=== PATIENT | female | born 1970 | race Caucasian/White ===

== ENCOUNTER 2020-11-03 12:48 | Emergency (ER) | payer OTHER, SELFPAY ==
--- NOTE | 2020-11-03 12:51 | ED.EAR ---
HPI - Ear Problem General Chief complaint: Ear Stated complaint: EARACHE Time Seen by Provider: 11/03/20 12:51 Source: patient and RN notes reviewed History of Present Illness HPI Narrative: Patient is a 50-year-old female who presents the urgent care with complaints of right ear pain. Patient states that it started on Saturday after she had gone swimming on Saturday. Patient states she has had reconstructive surgery to the right eardrum. Patient has been using drops that are her daughter's old prescription as well as ibuprofen. Patient states that the drops did not improve the pain. Patient also reports of some swelling in her right lymph node. Denies of any fever, chills, nausea, vomiting. States that she does have some painful swallowing. No other acute complaints. No acute distress noted. Patient aware of the plan of care. Some parts of this dictation were generated by voice recognition software and may contain typographical and/or grammatical inaccuracies. Related Data Home Medications Medication Instructions Recorded Confirmed ferrous sulfate [FeroSul] 325 mg PO DAILY 11/03/20 11/03/20 fluoxetine 20 mg PO DAILY 11/03/20 11/03/20 hydrochlorothiazide 25 mg PO DAILY 11/03/20 11/03/20 loratadine 10 mg PO DAILY 11/03/20 11/03/20 metformin 500 mg PO BID 11/03/20 11/03/20 thyroid (pork) [[place] Thyroid] 90 mg PO DAILY 11/03/20 11/03/20 Allergies Allergy/AdvReac Type Severity Reaction Status Date / Time No Known Allergies Allergy Verified 11/03/20 12:56 Review of Systems Review of Systems: Narrative: CONSTITUTIONAL: Denies fever, chills, or sweats. EYES: Denies visual changes, redness, or discharge. ENT: Reports of right-sided swollen lymph node, painful swallowing, and right ear pain CARDIOVASCULAR: Denies chest pain, palpitations, or edema. RESPIRATORY: Denies cough or dyspnea. GASTROINTESTINAL: Denies abdominal pain, nausea, vomiting, or diarrhea. GENITOURINARY: Denies dysuria or hematuria. SKIN: Denies rash or itching. MUSCULOSKELETAL: Denies back pain, joint pain, or myalgia. NEUROLOGIC: Denies headache, numbness, or weakness. All other systems reviewed are negative, except as documented in HPI. PMFSH Comments At the time of my signature, I reviewed and agree with the nursing past medical, surgical, social, and family history. There is no relevant family history pertinent to the patient complaint. Exam Narrative: Exam Narrative: GENERAL: This is a well-nourished, well-developed patient, in no apparent distress. HEAD: normocephalic, atraumatic. EYES: PERRL. Sclera clear/white. Vision is grossly intact. EARS: External ears normal, auditory canals clear and without drainage, mild fluid and mild scarring noted to the right TM without otitis, left TM normal without perforation. Hearing grossly intact. NOSE: External nose normal with no obvious nasal discharge, nares without redness, no rhinorrhea. THROAT: Mucous membranes moist, posterior pharynx clear. Mild postnasal drainage NECK: Neck supple, mild tender right submandibular lymphadenopathy CARDIOVASCULAR: Regular rate and rhythm without murmurs, gallops, or rubs. RESPIRATORY: Clear to auscultation. Breath sounds equal bilaterally. No wheezes, rales, or rhonchi. GASTROINTESTINAL: Abdomen soft, non-tender, nondistended. Bowel sounds are active. No hepato-splenomegaly, or palpable masses. No guarding. SKIN: warm, intact with no suspicious lesions or rash, good texture and turgor. NEURO: awake, alert, and oriented to person, place and time. There were no obvious focal neurologic abnormalities. EXTREMITIES: No clubbing, cyanosis, or edema. Course Vital Signs Vital signs: Vital Signs Temperature 99.0 F 11/03/20 12:57 Pulse Rate 112 H 11/03/20 12:57 Respiratory Rate 16 11/03/20 12:57 Blood Pressure 129/80 11/03/20 12:57 Pulse Oximetry 99 11/03/20 12:57 Temperature 99.0 F 11/03/20 12:57 Pulse Rate 112 H 11/03/20 12:57 Respiratory Rate 16 04
[2020-11-03 12:57] VITALS: BP 129/80; PULSE 112; RESP 16; TEMP 37.2; O2SAT 99
== END 2020-11-03 13:18 | disposition home or self-care (01) ==
PROVIDERS: Emergency Provider Nurse Practitioner Family; PCP Internal Medicine
DX: H92.01 Otalgia, right ear (principal); E11.9 Type 2 diabetes mellitus without complications; E03.9 Hypothyroidism, unspecified; D64.9 Anemia, unspecified
CPT/HCPCS: 87081; 87880; 99213; G0463

== ENCOUNTER 2022-01-11 11:12 | Emergency (ER) | payer OTHER, SELFPAY ==
[2022-01-11 11:20] VITALS: BP 117/89; PULSE 101; RESP 20; TEMP 36.7; O2SAT 99
--- NOTE | 2022-01-11 11:35 | ED.FEMALEGU ---
HPI - Female Genitourinary General Chief complaint: Urogenital-Female Stated complaint: UTI Complaint Time Seen by Provider: 01/11/22 11:35 Source: patient Mode of arrival: ambulatory Limitations: no limitations History of Present Illness HPI Narrative: 51-year-old female presents with complaint of urgency, dysuria, low back pain for 4 days. Reports pain several times but decreased amount. Denies nausea vomiting diarrhea. Denies fever chills. Is concerned that she has a urinary tract affection. All systems reviewed and negative except as noted above. Related Data Home Medications Medication Instructions Recorded Confirmed ferrous sulfate 325 mg (65 mg 325 mg PO DAILY 11/03/20 11/03/20 iron) tablet (FeroSul) fluoxetine 20 mg capsule 20 mg PO DAILY 11/03/20 11/03/20 hydrochlorothiazide 25 mg tablet 25 mg PO DAILY 11/03/20 11/03/20 loratadine 10 mg tablet 10 mg PO DAILY 11/03/20 11/03/20 metformin 500 mg tablet 500 mg PO BID 11/03/20 11/03/20 thyroid (pork) 90 mg tablet 90 mg PO DAILY 11/03/20 11/03/20 ([place] Thyroid) Allergies Allergy/AdvReac Type Severity Reaction Status Date / Time No Known Allergies Allergy Verified 11/03/20 12:56 Review of Systems Review of Systems: CONSTITUTIONAL: Denies fever, chills, or sweats. EYES: Denies visual changes, redness, or discharge. ENT: Denies rhinorrhea, congestion, sore throat, or otalgia. CARDIOVASCULAR: Denies chest pain, palpitations, or edema. RESPIRATORY: Denies cough or dyspnea. GASTROINTESTINAL: Denies abdominal pain, nausea, vomiting, or diarrhea. GENITOURINARY: Reports dysuria, urgency, decreased appetite. Denies hematuria. SKIN: Denies rash or itching. MUSCULOSKELETAL: Reports low back pain. Denies repeat joint pain, or myalgia. NEUROLOGIC: Denies headache, numbness, or weakness. PSYCHIATRIC: Denies anxiety or depression. All other systems reviewed are negative, except as documented in HPI. PMFSH Comments At time of signature, agree with nursing past medical, surgical, social and family history. There is no relevant family history pertinent to the presenting complaint. Exam Narrative: GENERAL: This is a well-nourished, well-developed patient, in no apparent distress. HEAD: normocephalic, atraumatic. EYES: PERRL. Sclera clear/white. Vision is grossly intact. EARS: External ears normal NOSE: External nose normal NECK: Neck supple, non-tender without lymphadenopathy, masses or thyromegaly. CARDIOVASCULAR: Regular rate and rhythm without murmurs, gallops, or rubs. RESPIRATORY: Clear to auscultation. Breath sounds equal bilaterally. No wheezes, rales, or rhonchi. SKIN: warm, Dry, intact with no suspicious lesions or rash, good texture and turgor. NEURO: awake, alert, and oriented to person, place and time. There were no obvious focal neurologic abnormalities. EXTREMITIES: No joint tenderness, effusion, or edema noted. BACK: No CVA tenderness. Course Course Level of Care: Express Care Visit Vital Signs Vital signs: Vital Signs Temperature 36.7 C 01/11/22 11:20 Pulse Rate 101 H 01/11/22 11:20 Respiratory Rate 20 01/11/22 11:20 Blood Pressure 117/89 01/11/22 11:20 Pulse Oximetry 99 01/11/22 11:20 Oxygen Delivery Room Air 01/11/22 11:20 Temperature 36.7 C 01/11/22 11:20 Pulse Rate 101 H 01/11/22 11:20 Respiratory Rate 20 01/11/22 11:20 Blood Pressure 117/89 01/11/22 11:20 Pulse Oximetry 99 01/11/22 11:20 Oxygen Delivery Room Air 01/11/22 11:20 Reviewed MDM - Female Genitourinary MDM Narrative Medical decision making narrative: Patient is aware of diagnosis, understands and agrees to treatment plan. Anticipatory guidance given. Patient agrees to follow-up as directed and is aware of reasons to seek care at the emergency department. Portions of this record may have been created with voice recognition software Lab Data Labs: Urine Glucose Negative
== END 2022-01-11 11:50 | disposition home or self-care (01) ==
PROVIDERS: Emergency Provider Nurse Practitioner Family; PCP Internal Medicine
DX: N39.0 Urinary tract infection, site not specified (principal); E11.9 Type 2 diabetes mellitus without complications; E03.9 Hypothyroidism, unspecified
CPT/HCPCS: 81003; 87086; 99213; G0463

== ENCOUNTER 2023-12-21 14:18 | Emergency (ER) | payer OTHER, SELFPAY ==
[2023-12-21 14:24] VITALS: BP 131/70; PULSE 89; RESP 20; TEMP 36.8; O2SAT 98
--- NOTE | 2023-12-21 14:25 | ED.EAR ---
HPI - Ear Problem General Chief complaint: Ear Stated complaint: ear ache and sore throat Time Seen by Provider: 12/21/23 14:25 Source: patient Mode of arrival: ambulatory Limitations: no limitations History of Present Illness HPI Narrative: 53 y/o female presented for c/o right ear pain x4 days. Started with sore throat yesterday. Endorses hoarse voice and cough. Denies nasal congestion, tinnitus, dizziness,n/v/d/f/c. Took a Claritin at onset without relief. Also taking ibuprofen. MD Complaint: ear pain Related Data Home Medications Medication Instructions Recorded Confirmed ferrous sulfate 325 mg (65 mg 325 mg PO DAILY 11/03/20 01/11/22 iron) tablet (FeroSul) fluoxetine 20 mg capsule 20 mg PO DAILY 11/03/20 01/11/22 thyroid (pork) 90 mg tablet 90 mg PO DAILY 11/03/20 01/11/22 ([place] Thyroid) losartan 50 mg-hydrochlorothiazide 1 tablet PO DAILY 01/11/22 01/11/22 12.5 mg tablet metformin 1,000 mg tablet 1 tablet PO BID 01/11/22 01/11/22 rosuvastatin 10 mg tablet 1 tablet PO DAILY 01/11/22 01/11/22 semaglutide 7 mg tablet (Rybelsus) mg PO 12/21/23 Allergies Allergy/AdvReac Type Severity Reaction Status Date / Time No Known Allergies Allergy Verified 01/11/22 11:55 Review of Systems Review of Systems: CONSTITUTIONAL: Denies malaise, chills, or fever. EYES: Denies visual changes, redness, or discharge. ENT: Denies rhinorrhea, congestion, sinus pain, Reports ear pain and sore throat. CARDIOVASCULAR: Denies chest pain, palpitations, or edema. RESPIRATORY: Denies cough or dyspnea. GASTROINTESTINAL: Denies abdominal pain, nausea, vomiting, diarrhea SKIN: Denies rash or itching. MUSCULOSKELETAL: Denies myalgia. NEUROLOGIC: Denies headache. All systems reviewed & are unremarkable except as noted in HPI and below PMFSH Past Medical History Medical History (Updated 12/21/23 @ 14:45 by Enma Barakat APRN) Diabetes HTN (hypertension) Hypothyroid Comments At time of signature, agree with nursing past medical, surgical, social and family history. There is no relevant family history pertinent to the presenting complaint Exam Narrative: GENERAL: Well-appearing, and in no acute distress. EYES: PERRLA, conjunctivae clear ENT: Nares clear. Mucous membranes moist. TMs pearly ward with dull light reflex bilaterally; Right TM slightly blocked with hard cerumen, visualized portion appears normal, no tragal tenderness. Oropharynx not erythematous without lesions. Tonsils absent, no drooling, no hoarseness, no trismus, uvula midline. NECK: Supple. No lymphadenopathy CHEST: Clear to auscultation, breath sounds equal. HEART: Regular rate and rhythm. No murmur heard. SKIN: Warm, dry, no rash. NEURO: Alert and oriented x3. PSYCH: Normal mood and affect Course Course Emergency Course: Patient is aware of diagnosis, understands and agrees to treatment plan. Anticipatory guidance given. Patient agrees to follow-up as directed and is aware of reasons to seek care at the emergency department. Portions of this record may have been created with voice recognition software Level of Care: Express Care Visit Vital Signs Vital signs: Reviewed Medical Decision Making MDM Narrative Medical decision making narrative: Result of strep reviewed with pt. Discussed physical exam findings. Advised supportive measures and signs/symptoms to go to the ER. Patient is appropriate for outpatient treatment and follow-up. Differential Diagnosis Differential Diagnosis: Coronavirus, strep pharyngitis, allergic rhinitis, upper respiratory tract infection, sinusitis, rhinosinusitis, nasopharyngitis, viral pharyngitis, otitis media, otitis externa, eustachian tube dysfunction, foreign body, cerumen impaction. Discharge Plan Discharge Clinical Impression: Acute otalgia Patient Disposition: Home, Self-Care Condition: Stable Instructions: Antibiotic Form, Allergies (ED), Earache (ED) Additional Instructions: Rapid s
== END 2023-12-21 14:52 | disposition home or self-care (01) ==
PROVIDERS: Emergency Provider Nurse Practitioner Family; PCP Internal Medicine
DX: H92.01 Otalgia, right ear (principal); E11.9 Type 2 diabetes mellitus without complications; Z79.84 Long term (current) use of oral hypoglycemic drugs; I10 Essential (primary) hypertension; E03.9 Hypothyroidism, unspecified
CPT/HCPCS: 87081; 87880; 99213; G0463